=== PATIENT | male | born 1965 | race Caucasian/White ===

== ENCOUNTER 2018-06-07 16:25 | Emergency (ER) | payer MEDICARE, MEDICAID ==
[~2018-06-07] VITALS: Ht 188 cm; Wt 90.0 kg
[~2018-06-07 16:25] MED LIST: BENZ-16 PO; DOCU-28 PO; METH-603 PO; OMEP40CA37 PO
[2018-06-07 17:11] VITALS: BP 131/91
[2018-06-07 19:03] LABS: BASOPHILS % (AUTO) 0.4 % (0-1); EOSINOPHILS # (AUTO) 0.1 X10'3 (0-0.9); EOSINOPHILS % (AUTO) 0.9 % (0-6); HEMATOCRIT 48.9 % (42.0-52.0); HEMOGLOBIN 16.5 g/dl (14.0-17.9); LYMPHOCYTES # (AUTO) 1.7 X10'3 (1.1-4.8); LYMPHOCYTES % (AUTO) 16.5 % (21-51); MEAN CORPUSCULAR HEMOGLOBIN 30.5 PG (27.0-31.0); MEAN CORPUSCULAR HGB CONC 33.7 % (33.0-36.5); MEAN CORPUSCULAR VOLUME 90.5 FL (78-98); MEAN PLATELET VOLUME 8.2 FL (7.4-10.4); MONOCYTES # (AUTO) 0.7 X10'3 (0-0.9); MONOCYTES % (AUTO) 6.1 % (2-12); NEUTROPHILS # (AUTO) 8.1 X10'3 (1.8-7.7); NEUTROPHILS % (AUTO) 76.1 % (42-75); PLATELET COUNT 304 X10'3 (140-440); RED CELL DISTRIBUTION WIDTH 14.2 % (11.5-14.5); WHITE BLOOD COUNT 10.6 X10'3 (4.5-11.0)
[2018-06-07 19:21] LABS: ALANINE AMINOTRANSFERASE 37 U/L (12-78); ALBUMIN 3.7 G/DL (3.4-5.0); ALBUMIN/GLOBULIN RATIO 0.9 (1.1-1.5); ALKALINE PHOSPHATASE 122 IU/L (46-116); ANION GAP 10 (8-16); ASPARTATE AMINO TRANSFERASE 16 U/L (10-37); BILIRUBIN,TOTAL 0.4 MG/DL (0.1-1.0); BLOOD UREA NITROGEN 17 MG/DL (7-18); BUN/CREATININE RATIO 14.7 (5.4-32.0); CALCIUM 9.2 MG/DL (8.5-10.1); CHLORIDE 104 MMOL/L (99-107); CREATININE 1.16 MG/DL (0.60-1.10); GLUCOSE 113 MG/DL (70-104); SODIUM 139 MMOL/L (135-145); TOTAL PROTEIN 7.7 G/DL (6.4-8.2); eGFR 66 ML/MIN
[2018-06-07] MEDS ORDERED: CEPH-572 PO (19:52)
[2018-06-07] MEDS ORDERED: IBUP-1985 PO (19:59)
== END 2018-06-07 20:05 | disposition home or self-care (01) ==
LOC: ER 16:25
DX: L03.012 Cellulitis of left finger (principal); E78.00 Pure hypercholesterolemia, unspecified; M19.90 Unspecified osteoarthritis, unspecified site; Z98.890 Other specified postprocedural states; Z79.899 Other long term (current) drug therapy
CPT/HCPCS: 36415; 73130; 80053; 84550; 85025; 85651; 99284

== ENCOUNTER 2019-05-13 18:12 | Emergency (ER) | payer MEDICARE, MEDICAID ==
[~2019-05-13] VITALS: Ht 170.2 cm; Wt 94.1 kg
[~2019-05-13 18:12] MED LIST changes: +IBUP-1985 PO; +OMEP40CA13 PO; -OMEP40CA37 PO
[2019-05-13] MEDS ORDERED: normal saline 1000ml 1,000 ML IVB ONE (18:20)
[2019-05-13 19:09] LABS: BASOPHILS % (AUTO) 0.4 % (0-1); EOSINOPHILS # (AUTO) 0.1 X10'3 (0-0.9); EOSINOPHILS % (AUTO) 0.6 % (0-6); HEMATOCRIT 41.4 % (42.0-52.0); HEMOGLOBIN 14.5 g/dl (14.0-17.9); LYMPHOCYTES # (AUTO) 1.2 X10'3 (1.1-4.8); LYMPHOCYTES % (AUTO) 12.2 % (21-51); MEAN CORPUSCULAR HEMOGLOBIN 30.7 PG (27.0-31.0); MEAN CORPUSCULAR VOLUME 87.5 FL (78-98); MEAN PLATELET VOLUME 8.5 FL (7.4-10.4); MONOCYTES # (AUTO) 0.8 X10'3 (0-0.9); NEUTROPHILS # (AUTO) 7.8 X10'3 (1.8-7.7); NEUTROPHILS % (AUTO) 78.8 % (42-75); PLATELET COUNT 291 X10'3 (140-440); RED BLOOD COUNT 4.73 X10'6 (4.70-6.10); RED CELL DISTRIBUTION WIDTH 13.6 % (11.5-14.5); WHITE BLOOD COUNT 9.9 X10'3 (4.5-11.0)
[2019-05-13 19:23] LABS: ALANINE AMINOTRANSFERASE 28 U/L (12-78); ALBUMIN 3.5 G/DL (3.4-5.0); ALKALINE PHOSPHATASE 105 IU/L (46-116); ANION GAP 10 (8-16); ASPARTATE AMINO TRANSFERASE 19 U/L (10-37); BILIRUBIN,TOTAL 0.8 MG/DL (0.1-1.0); BLOOD UREA NITROGEN 35 MG/DL (7-18); BUN/CREATININE RATIO 26.3 (5.4-32.0); CALCIUM 9.4 MG/DL (8.5-10.1); CHLORIDE 99 MMOL/L (99-107); CREATININE 1.33 MG/DL (0.60-1.10); GLUCOSE 111 MG/DL (70-104); LIPASE 50 U/L (73-393); SODIUM 137 MMOL/L (135-145); eGFR 56 ML/MIN
--- NOTE | 2019-05-13 19:40 | NUR ---
Pt was found wandering looking for cafeteria in hallway. Back to his room. VSS.
[2019-05-13] MEDS ORDERED: ondansetron/PF 4mg/2ml inj IV STA (19:53)
[2019-05-13] MEDS ORDERED: potassium Cl 20 mEq SR tablet PO STA (19:53)
--- NOTE | 2019-05-13 19:56 | NUR ---
K low/ordered Kdur 40meq and IV zofran after talking to Dr. Carl.
[2019-05-13] MEDS ORDERED: pantoprazole 40 MG vial IV ONE (20:55)
--- NOTE | 2019-05-13 20:58 | NUR ---
informed pt wants to sign out AMA. Talked to him, informed him his bp is low/that I can smell GI bleed and it is not in his best interest to sign out AMA. He said it is just taking too long. He is in the bathroom right now. Form is ready and it was discussed with Dr Carl. I will see if this is what pt still wants to do when he gets back to his room.
[2019-05-13] MEDS ORDERED: ondansetron/PF 4mg/2ml inj IV ONE (21:00)
[2019-05-13] MEDS ORDERED: normal saline 1000ml 1,000 ML IV ONE (21:00)
[2019-05-13] MEDS ORDERED: pantoprazole 40MG/NS 100ML BAG 100 ML IV SCH (21:00)
--- NOTE | 2019-05-13 21:03 | NUR ---
talking to pt
[2019-05-13 21:14] VITALS: BP 112/80
== END 2019-05-13 21:15 | disposition left against medical advice (07) ==
LOC: ER 18:14
DX: K92.2 Gastrointestinal hemorrhage, unspecified (principal); R11.10 Vomiting, unspecified; E78.00 Pure hypercholesterolemia, unspecified; M19.90 Unspecified osteoarthritis, unspecified site; Z98.890 Other specified postprocedural states; Z79.899 Other long term (current) drug therapy
CPT/HCPCS: 36415; 80053; 83690; 85025; 96374; 99284; C9113; J2405; J7030

== ENCOUNTER 2019-07-31 21:30 | Emergency (ER) | payer MEDICAID, MEDICARE ==
[~2019-07-31] VITALS: Ht 188 cm; Wt 91.8 kg
[2019-07-31 21:46] VITALS: BP 136/99
== END 2019-07-31 21:46 | disposition left against medical advice (07) ==
LOC: ER 21:31
DX: R68.89 Other general symptoms and signs (principal); Z53.21 Procedure and treatment not carried out due to patient leaving prior to being seen by health care provider

== ENCOUNTER 2020-02-25 07:11 | Emergency (ER) | payer MEDICARE ==
[~2020-02-25] VITALS: Ht 188 cm; Wt 90.9 kg
[2020-02-25] MEDS ORDERED: aspirin 81mg tab.chew PO ONE (07:40)
[2020-02-25 08:17] LABS: BASOPHILS # (AUTO) 0.1 X10'3 (0-0.2); BASOPHILS % (AUTO) 1.2 % (0-1); EOSINOPHILS # (AUTO) 0.2 X10'3 (0-0.9); EOSINOPHILS % (AUTO) 2.5 % (0-6); HEMATOCRIT 34.8 % (42.0-52.0); HEMOGLOBIN 11.3 g/dl (14.0-17.9); LYMPHOCYTES % (AUTO) 20.3 % (21-51); MEAN CORPUSCULAR HEMOGLOBIN 23.8 PG (27.0-31.0); MEAN CORPUSCULAR HGB CONC 32.6 g/dL (33.0-36.5); MEAN CORPUSCULAR VOLUME 73.1 FL (78-98); MEAN PLATELET VOLUME 7.4 FL (7.4-10.4); MONOCYTES # (AUTO) 0.8 X10'3 (0-0.9); MONOCYTES % (AUTO) 8.4 % (2-12); NEUTROPHILS # (AUTO) 6.6 X10'3 (1.8-7.7); NEUTROPHILS % (AUTO) 67.6 % (42-75); PLATELET COUNT 414 X10'3 (140-440); RED BLOOD COUNT 4.75 X10'6 (4.70-6.10); RED CELL DISTRIBUTION WIDTH 21.8 % (11.5-14.5); WHITE BLOOD COUNT 9.7 X10'3 (4.5-11.0)
[2020-02-25 08:27] LABS: ANION GAP 7 (8-16); BLOOD UREA NITROGEN 12 MG/DL (7-18); BUN/CREATININE RATIO 10.9 (5.4-32.0); CHLORIDE 106 MMOL/L (99-107); GLUCOSE 106 MG/DL (70-104); POTASSIUM 3.7 MMOL/L (3.5-5.1); SODIUM 139 MMOL/L (135-145); TOTAL CARBON DIOXIDE 25.7 MMOL/L (24-32); eGFR 69 ML/MIN
[2020-02-25 08:28] LABS: ALANINE AMINOTRANSFERASE 27 U/L (12-78); ALBUMIN 3.4 G/DL (3.4-5.0); ALBUMIN/GLOBULIN RATIO 0.9 (1.1-1.5); ALKALINE PHOSPHATASE 92 IU/L (46-116); ASPARTATE AMINO TRANSFERASE 16 U/L (10-37); BILIRUBIN,TOTAL 0.7 MG/DL (0.1-1.0); CALCIUM 9.1 MG/DL (8.5-10.1); TOTAL PROTEIN 7.2 G/DL (6.4-8.2)
[2020-02-25 09:04] LABS: ELLIPTOCYTES FEW; HYPOCHROMASIA 1+; PLATELET ESTIMATE NORMAL; POLYCHROMASIA FEW
[2020-02-25 11:20] VITALS: BP 105/59
== END 2020-02-25 12:30 | disposition home or self-care (01) ==
LOC: ER 07:12
DX: R07.89 Other chest pain (principal); R06.02 Shortness of breath; R53.1 Weakness; M19.90 Unspecified osteoarthritis, unspecified site; F12.90 Cannabis use, unspecified, uncomplicated; F15.90 Other stimulant use, unspecified, uncomplicated; Z98.890 Other specified postprocedural states; Z79.899 Other long term (current) drug therapy
CPT/HCPCS: 36415; 71045; 80053; 83880; 84484; 85008; 85025; 93005; 99285